=== PATIENT | male | born 1960 | race Caucasian/White ===

== ENCOUNTER 2018-10-11 19:49 | Inpatient (IN) | payer BC, OTHER ==
[2018-10-11] MEDS: IBUPROFEN 800 MG TAB PO (20:07)
[2018-10-11] MEDS ORDERED: ONDANSETRON 4 MG INJ IV (22:30)
[2018-10-11] MEDS ORDERED: ACETAMINOPHEN 325 MG TAB PO (22:30)
[2018-10-12] MEDS ORDERED: ONDANSETRON 4 MG INJ IV
[2018-10-12] MEDS ORDERED: morphine 2 MG INJ IV
[2018-10-12] MEDS ORDERED: NACL 0.9% 3 ML SYG IV
[2018-10-12] MEDS: IBUPROFEN 800 MG TAB PO (03:56)
[2018-10-12 04:58] LABS: ADD MAN DIFF? NO
[2018-10-12 05:02] LABS: BASOPHILS % 0.4 % (0.0-2.0); EOSINOPHILS % 0.4 % (0.0-7.0); HEMATOCRIT 42.7 % (42.0-52.0); HEMOGLOBIN 14.7 g/dl (14.0-18.0); LYMPHOCYTES # 1.6 10^3/ul (0.8-2.9); LYMPHOCYTES % 17.2 % (15.0-51.0); MEAN CORPUSCULAR HEMOGLOBIN 31.7 pg (29.0-33.0); MEAN CORPUSCULAR HGB CONC 34.4 g/dl (32.0-37.0); MEAN PLATELET VOLUME 10.1 fl (7.4-10.4); MONOCYTE # 0.9 10^3/ul (0.3-0.9); MONOCYTES % 9.6 % (0.0-11.0); NEUTROPHIL # 6.5 10^3/ul (1.6-7.5); NEUTROPHILS % 72.1 % (39.0-77.0); PLATELET COUNT 173 10^3/UL (140-415); RED BLOOD COUNT 4.64 10^6/ul (4.70-6.10); RED CELL DISTRIBUTION WIDTH 12.8 % (11.5-14.5)
[2018-10-12 05:26] LABS: INR 1.28; PARTIAL THROMBOPLASTIN TIME 26.3 Sec (23.0-35.0); PROTIME 16.1 Sec (11.9-14.9); PT RATIO 1.3
[2018-10-12 05:31] LABS: ALANINE AMINOTRANSFERASE 33 IU/L (13-69); ALBUMIN 3.6 g/dl (3.3-4.9); ALBUMIN/GLOBULIN RATIO 1.44; ALKALINE PHOSPHATASE 53 IU/L (42-121); ANION GAP 8 (5-13); ASPARTATE AMINO TRANSFERASE 35 IU/L (15-46); BILIRUBIN,INDIRECT 1.2 mg/dl (0-1.1); BILIRUBIN,TOTAL 1.2 mg/dl (0.2-1.3); BLOOD UREA NITROGEN 27 mg/dl (7-20); CALCIUM 8.8 mg/dl (8.4-10.2); CARBON DIOXIDE 26 mmol/L (21-31); CHLORIDE 106 mmol/L (97-110); CREATININE 1.02 mg/dl (0.61-1.24); Estimated GFR > 60 mL/min (>60); GLUCOSE 103 mg/dl (70-220); PHOSPHORUS 3.6 mg/dl (2.5-4.9); POTASSIUM 4.2 mmol/L (3.5-5.1); SODIUM 140 mmol/L (135-144); TOTAL PROTEIN 6.1 g/dl (6.1-8.1)
[2018-10-12] MEDS: ENOXAPARIN 40 MG/0.4 ML SYG SC (08:59)
[2018-10-12] MEDS ORDERED: ENOXAPARIN 40 MG/0.4 ML SYG SC (09:00)
[2018-10-12] MEDS: ACETAMINOPHEN 325 MG TAB PO (10:49)
[2018-10-12] MEDS: ACETAMINOPHEN 500 MG TAB PO (18:01)
[2018-10-12] MEDS: HYDROCODONE/APAP (5/325) TAB PO (23:28)
[2018-10-13] MEDS: HYDROCODONE/APAP (5/325) TAB PO ×4 (05:40→21:34)
[2018-10-13] MEDS: ENOXAPARIN 40 MG/0.4 ML SYG SC (08:55)
[2018-10-13] MEDS: ACETAMINOPHEN 500 MG TAB PO (15:06)
[2018-10-13] MEDS ORDERED: HYDROCODONE/APAP (5/325) TAB PO (16:30)
[2018-10-13] MEDS ORDERED: DOCUSATE SODIUM 100 MG CAP PO (18:00)
[2018-10-13] MEDS: DOCUSATE SODIUM 100 MG CAP PO (18:28)
[2018-10-14] MEDS: HYDROCODONE/APAP (5/325) TAB PO ×2 (06:20→11:26)
[2018-10-14] MEDS: ENOXAPARIN 40 MG/0.4 ML SYG SC (09:58)
[2018-10-14] MEDS: ACETAMINOPHEN 500 MG TAB PO (13:34)
== END 2018-10-14 14:35 | disposition home health service (06) | DRG 536 ==
LOC: MS1 22:21 → E/R 19:49
DX: S32.411A Displaced fracture of anterior wall of right acetabulum, initial encounter for closed fracture (principal); S32.19XA Other fracture of sacrum, initial encounter for closed fracture; S32.591A Other specified fracture of right pubis, initial encounter for closed fracture; M16.0 Bilateral primary osteoarthritis of hip; S32.431A Displaced fracture of anterior column [iliopubic] of right acetabulum, initial encounter for closed fracture; S39.013A Strain of muscle, fascia and tendon of pelvis, initial encounter; W05.2XXA Fall from non-moving motorized mobility scooter, initial encounter
CPT/HCPCS: 71045; 72190; 72195; 73510; 73700; 73721; 80053; 83735; 84100; 85025; 85610; 85730; 97116; 97162; 97530; 99285-25